=== PATIENT | female | born 1950 | race Caucasian/White ===

== ENCOUNTER 2019-12-25 09:09 | Day surgery (SDC) | payer MEDICARE, SELFPAY ==
[2019-12-24 12:22] VITALS: BMI 29.6
[2019-12-25] VITALS (9 sets, daily range): BP systolic 130–158; BP diastolic 74–85; PULSE 63–78; RESP 9–16; TEMP 36–37.2; O2SAT 92–96; BMI 29.6
--- NOTE | 2019-12-25 | DI.RAD.S_ITS ---
PROCEDURE: XR ANKLE RT MIN 3V INDICATIONS: SYNDESMOSIS , / , FX REPAIR TECHNIQUE: One views of the ankle were acquired. COMPARISON: [facility] Outside Film, RG, ANKLE MIN 3VW (RT), 12/17/2019, 13:54. FINDINGS: Bones: Intraoperative images postsurgical changes related to ORIF of distal fibular fracture and tibiofibular arthrodesis. Soft tissues: No tibiotalar joint effusion. IMPRESSION: Expected postsurgical change for ORIF distal fibular fracture. Dictated by: Alma Williamson MD, PhD on 12/25/2019 at 15:22 Approved by: Alma Williamson MD, PhD on 12/25/2019 at 15:25
[2019-12-25] MEDS: LACTATED RINGERS 1,000 ML 42 ML IV ×2 (10:03→12:38)
--- NOTE | 2019-12-25 10:52 | PM.PREOP ---
Pre-operative Note Interval Note History & Physical reviewed/Exam performed by Physician: Yes Changes to H&P: No
--- NOTE | 2019-12-25 11:17 | SUR.PREOP ---
Block start time [1055] . Monitoring initiated and maintained throughout procedure. Oxygen given per anesthesiologist instructions and medications given by anesthesiologist. Patient remained stable throughout procedure, no adverse reactions noted. Block end time [1115].
[2019-12-25] MEDS: CEFAZOLIN 2 GM/100 ML FROZ.PIGGY IV (11:20)
--- NOTE | 2019-12-25 11:46 | SUR.OPER ---
Supine on padded OR bed, head on pillow, arms secured on padded arm boards at <90 degrees abduction, legs uncrossed, safety belt at abdomen, tape over blanket over nonoperative leg, operative leg positioned with bump by surgeon.
[2019-12-25] MEDS: BUPIVACAINE 0.25% W/ EPI 30 ML VIAL INJ (11:54)
[2019-12-25] MEDS: fentaNYL 100 MCG/2 ML INJ IV (13:03)
--- NOTE | 2019-12-25 13:04 | PM.OP.1 ---
Operative Date/Time/Diagnoses Date of procedure: 12/25/19 Time of procedure: 11:45 Pre-op diagnosis: Closed fracture right ankle S82. 891 Closed fracture posterior malleolus S82.391 Syndesmotic disruption right ankle S93.431 Post-op diagnosis: same Procedure & Clinicians Procedure: 1. Open reduction internal fixation lateral malleolus fracture right fibula CPT code 43333 2. Fixation syndesmosis right ankle CPT code 32923 3. Closed treatment fracture posterior malleolus without manipulation right CPT code 98762 Same procedure as scheduled: Yes Indications: Patient is a 69-year-old female that had a fall twisting her right ankle and sustained a displaced ankle fracture. She has an on stable pattern right ankle fracture with lateral malleolus and posterior malleolus fractures and medial injury consistent with deltoid injury. The risks and benefits of surgery were discussed with the patient. The patient is a elected to proceed with open reduction internal fixation. We discussed the treatment is aimed at reduction of the ankle joint to reduce the risk of posttraumatic arthritis persistent disability and dysfunction. The patient understands there will be 6 weeks of nonweightbearing postop period there is no history of prior blood clots. The patient will use aspirin for DVT prophylaxis. The risks and benefits of the procedure have been discussed with the patient even opportunity to ask questions. The risks of surgery include but are not limited to infection, malunion, nonunion, persistence of pain, damage to nerves and blood vessels, posttraumatic arthritis, DVT, PE, cardiopulmonary complications and . The patient expressed a thorough understanding of the risks and benefits of surgery and has elected to proceed. Consent was signed in the office. Surgeon: Julissa Love Click Yes if Unassisted: Yes Anesthesia Type: General, Peripheral nerve block and Local Operative Notes Findings: Displaced lateral malleolus fracture, oblique at the level of the syndesmosis. This was cleaned and reduced stabilized with 2 lag screws, 3.5 cortical a posterior lateral neutralization plate was placed with cortical screws proximally and 1 . locking screw distally to reduce prominence. Direct visual inspection demonstrated unstable ankle syndesmosis on stress examination. This was then reduced with thumb pressure and pinned with a K-wire. A syndesmotic suture button device was then placed. Syndesmosis was recessed after fixation was stable. Mortise was symmetric. Closure Type: primary Specimen(s): none sent Prosthetic devices, grafts, tissues, transplants, or devices: Arthrex 6 hole 1/3 tubular plate. 1x 3.5 locking screw distally, 2x 3.5 inter frag lag screws. Tight rope Applied: other (Splint) Estimated Blood Loss (mL): 10 Blood products transfused: none Tourniquet time (min): 50 Procedure in detail: Procedure in detail: In the preoperative holding area, the appropriate limb and sites were marked, consent was again reviewed with the patient and all questions answered. The patient was brought to the operating room, placed on the operating table and given anesthetic. Following successful levels of anesthesia, the patient was appropriately padded, position secured to the table. An SCD was placed on the contralateral leg. All bony prominences were well padded. A well-padded thigh tourniquet was placed. The surgical leg was then prepped and draped in the usual sterile fashion. A formal time-out procedure was completed confirming the patient, site and side of surgery and administration of appropriate preoperative antibiotics. All were in agreement. An Esmarch bandage was utilized to exsanguinate the limb and the tourniquet was raised on the thigh to 250 mmHg. Lateral incision was made over the fibula. Dissection was carried through the skin and subcutaneous tissue to the level of the fibula. The fracture was exposed and cleaned of debris. Fracture was reduced, restoring length rotation and anatomic alignment. This was stabilized with 2 x 3.5 inter frag lag screws. Next a 6 hole 1/3 tubular locking neutralization plate was placed and secured in standard fashion. Appropriate implant positioning was confirmed on intraoperative fluoro. Ankle was stressed under fluoroscopic imaging an external rotation and fibular manipulation using the bone clamp/hook. The syndesmosis was unstable. Syndesmosis stabilization: Attention was then turned to the syndesmosis. The syndesmosis was unstable. Therefore the syndesmosis was formally opened and reduced with thumb pressure and pinned with a K-wire. And then stabilized with the Arthrex tight rope suture button device. This was secured in the standard fashion. Stability was confirmed under fluoro. The wounds were irrigated. We were quite satisfied with result clinically and radiographically. The tourniquet was released, and hemostasis achieved. The deep tissue was closed with 2 O Vicryl. Subcutaneous tissue was closed with 4 0 Monocryl in the skin with 3 O nylon. A sterile bulky dressing with Nguyen cotton and splint was applied. All counts were correct. The patient was then awoken and transported to recovery room in good condition. There no known immediate complications from this procedure. Complications: none Post-operative Condition: stable Disposition: PACU Plan for aftercare: Nonweightbearing x6 weeks. Elevate above the heart level. Aspirin for DVT prophylaxis. Follow-up in 2 weeks.
--- NOTE | 2019-12-25 13:40 | P.PCN_ITS ---
Procedures Date/Time Date of procedure: 12/25/19 Time of procedure: 11:05 General Procedure description: Ultrasound guided popliteal sciatic nerve block for post op pain control after Right ankle ORIF by Dr. Love. Risk and benefits of pr ocedure discussed with patient. ASA monitoring applied to patient. Oxygen given via nasal cannula. 2 mg Versed and 50 mcg fentanyl given for procedural sedation. Skin site was prepped with chlorhexidine and allowed to fully dry. Sterile gloves, mask, hat and probe cover were used to maintain sterility. 2% lidocaine and 30ga needle was used to make a small skin wheal at needle insertion site. Under ultrasound guidance, a 21ga 100mm Pajunk needle was directed near the division of the sciatic nerve into tibial and peroneal nerve in the popliteal fossa (lateral approach). Patient reported no parasthesias. After negative aspiration, 20 mL 0.5% ropivicaine and 5mg dexamethasone were injected around sciatic nerve. Patient tolerated procedure well. Adductor canal block also performed under US guidance. Midthigh medial approach revealed femoral arter/vein and saphenous nerve. 21 ga Pajunk 100mm needle tip was directed into adductor canal near femoral artery. After negative aspiration, 20 mL 0.5% ropivavaine and 5mg dexamethasone were injected without parasthesias. Patient tolerated well.
--- NOTE | 2019-12-25 13:48 | SUR.PHASEII ---
1345 Pt awake, smiling, waiting for to return. Declines PO snack. No pain/nausea, wants to wait until he is here to review instructions.
--- NOTE | 2019-12-25 14:27 | SUR.PHASEII ---
instructions reviewed thoroughly with patient and spouse, questions answered. IV dc'd and clothing bag given. Demonstrated ice pack behind the knee and CMS checks.
--- NOTE | 2019-12-25 14:36 | SUR.PHASEII ---
Transferred well, non-weight bearing into wheelchair; taken into the bathroom.
== END 2019-12-25 14:43 | disposition home or self-care (01) ==
PROVIDERS: Referring Provider Orthopaedic Surgery Foot and Ankle Surgery; Visit Provider Orthopaedic Surgery Foot and Ankle Surgery
PROC: 0SSF04Z Reposition Right Ankle Joint with Internal Fixation Device, Open Approach (ICD-10-PCS; CPT 27792; principal; 2019-12-25 10:45)
DX: S82.891A Other fracture of right lower leg, initial encounter for closed fracture (principal); S82.391A Other fracture of lower end of right tibia, initial encounter for closed fracture; S93.431A Sprain of tibiofibular ligament of right ankle, initial encounter; W10.9XXA Fall (on) (from) unspecified stairs and steps, initial encounter
CPT/HCPCS: 27792; 27829; 64450; 73610; 76000; J0690; J1100; J1885; J2250; J2405; J2704; J3010